=== PATIENT | male | born 1965 | race Caucasian/White ===

== ENCOUNTER 2018-10-01 12:30 | Emergency (ER) | payer OTHER ==
[~2018-10-01] VITALS: Ht 177.8 cm; Wt 88.5 kg
[2018-10-01] MEDS ORDERED: LIDOCAINE 1% INJ 20 ML 20 ML VIAL INJ ONE (13:00)
[2018-10-01] MEDS ORDERED: TETANUS,DIPTH,PERTUSS P/F (BOOSTRIX) 0.5 ML VIAL IM ONE (13:00)
--- NOTE | 2018-10-01 13:06 | ED Upper Extremity ---
General Chief Complaint: Laceration Stated Complaint: L THUMB LAC Nursing Triage Note: PT AMB TO [facility] 10 WITH COMPLAINT OF LEFT THUMB LACERATION. CUT ON KNIFE CUTTING ZIP TIES. Nursing Sepsis Screen: No Definite Risk History of Present Illness Date Seen by Provider: Oct 01, 2018 Time Seen by Provider: 12:38 Initial Comments 52-year-old male was helping his son move into college, he was cutting a zip tie with a utility knife and lacerated his left thumb on the dorsal tip. He is unsure of his last tetanus immunization. Onset: just prior to arrival Pain/Injury Location: left thumb Method of Injury: incised Allergies and Home Medications Allergies Coded Allergies: No Known Drug Allergies (Unverified , 10/01/18) Patient Home Medication List Home Medication List Reviewed: Yes Review of Systems Constitutional: no symptoms reported, see HPI Skin: see HPI, other (laceration left thumb) All Other Systems Reviewed Negative Unless Noted: Yes Past Thvpvcq-Wctqln-[id number] Hx Past Med/Social Hx: Reviewed Nursing Past Med/Soc Hx Patient Social History Alcohol Use: Occasionally Uses Recreational Drug Use: No Smoking Status: Never a Smoker Recent Foreign Travel: No Contact w/Someone Who Travel: No Recent Infectious Disease Expo: No Recent Hopitalizations: No Physical Abuse: No Sexual Abuse: No Mistreated: No Fear: No Immunizations Up To Date Tetanus Booster (TDap): More than 5yrs PED Vaccines UTD: Yes Seasonal Allergies Seasonal Allergies: No Past Medical History Surgeries: Yes Orthopedic Respiratory: No Cardiac: No Neurological: No Genitourinary: No Gastrointestinal: No Musculoskeletal: No Endocrine: No HEENT: No Cancer: No Psychosocial: No Integumentary: No Blood Disorders: No Physical Exam Vital Signs Vital Signs - First Documented 10/01/18 12:36 Temp 98.0 Pulse 70 Resp 16 B/P (MAP) 142/114 (123) Pulse Ox 97 O2 Delivery Room Air Capillary Refill : Less Than 3 Seconds Height, Weight, BMI Height: 5'10.00" Weight: 195lbs. oz. 88.539491vl; BMI Method:Stated General Appearance: WD/WN, no apparent distress Cardiovascular: normal peripheral pulses, regular rate, rhythm Respiratory: chest non-tender, lungs clear, normal breath sounds Hand: non-tender (Left thumb cap refill < 2 sec), Left, laceration Neurologic/Tendon: normal sensation, normal motor functions, normal tendon functions (tendons intact left thumb, power with resisted motion V/V) Neurologic/Psychiatric: no motor/sensory deficits, alert, normal mood/affect, oriented x 3 Skin: normal color, warm/dry Procedures/Interventions Wound Location: Upper Extremities (left thumb) Wound Length (cm): 2 Wound's Depth, Shape: superficial Wound Explored: clean Irrigated w/ Saline (ccs): 500 Betadine Prep?: Yes Anesthesia: 1% Lidocaine Volume Anesthetic (ccs): 3 Suture: Plain Suture Size: 4-0 Number of Sutures: 4 Sterile Dressing Applied?: Yes Progress Wound well approximated, no active bleeding, sterile dressing applied. Patient tolerated procedure well. Progress/Results/Core Measures Results/Orders My Orders Orders - COLBY MCCLOUD Lidocaine 1% Inj 20 Ml (Xylocaine 1% Inj (10/01/18 13:00) Dipht,Pertuss(Acell),Tet Adult (Boostrix (10/01/18 13:00) Acetaminophen Tablet/Caplet (Tylenol T (10/01/18 13:30) Medications Given in ED Current Medications Medications Dose Ordered Sig/Humza Route Start Time Stop Time Status Last Admin Dose Admin Acetaminophen 650 mg ONCE ONCE PO 10/01/18 13:30 10/01/18 13:31 DC 10/01/18 13:40 650 MG Diphtheria/ Tetanus/Acell Pertussis 0.5 ml ONCE ONCE IM 10/01/18 13:00 10/01/18 13:01 DC 10/01/18 13:02 0.5 ML Lidocaine HCl 20 ml ONCE ONCE INJ 10/01/18 13:00 10/01/18 13:01 DC 10/01/18 13:20 20 ML Vital Signs/I&O 10/01/18 10/01/18 12:36 13:42 Temp 98.0 Pulse 70 67 Resp 16 20 B/P (MAP) 142/114 (123) 136/100 (112) Pulse Ox 97 99 O2 Delivery Room Air Room Air Blood Pressure Mean: 123 Departure Impression Primary Impression: Laceration of left thumb Qualified Codes: S61.012A - Laceration without foreign body of left thumb without damage to nail, initial encounter Disposition: HOME, SELF-CARE Condition: Improved Departure-Patient Inst. Decision time for Depature: 13:15 Referrals: NO,LOCAL PHYSICIAN (PCP/Family) Primary Care Physician Patient Instructions: Laceration Repair With Stitches (DC) Add. Discharge Instructions: Keep wound clean and dry for the next 24 hours. Reenforce dressing as needed. Tomorrow morning you may remove dressing and shower. Do not submerge the left thumb in a bathtub, swimming pool, hot tub, sink of water, or any other standing water. Clean wound with peroxide after showers or if wound becomes wet. Cover with bandaid or dressing when away from home, may be open to air at home. You may alternate between Tylenol 650 mg and ibuprofen 600 mg every 4 hours for pain. Ice and elevate her left thumb for throbbing or pain. Follow-up with your primary care provider in 7-10 days for suture removal. Return to emergency department or see your primary care provider for fever greater than 101, redness or pain at wound site, discolored or foul-smelling drainage, or any new concerns. All discharge instructions reviewed with patient and/or family. Voiced understanding. COLBY MCCLOUD Oct 01, 2018 13:06
[2018-10-01] MEDS ORDERED: ACETAMINOPHEN 325 MG TABLET PO ONE (13:30)
[2018-10-01 13:42] VITALS: BP 136/100
== END 2018-10-01 13:42 | disposition home or self-care (01) ==
LOC: ER 12:31
DX: S61.012A Laceration without foreign body of left thumb without damage to nail, initial encounter (principal); W26.0XXA Contact with knife, initial encounter
CPT/HCPCS: 12001; 90471; 90715